=== PATIENT | female | born 1955 | race Caucasian/White ===

== ENCOUNTER → 2021-02-23 | Outpatient (CLI) | payer MEDICARE, BC ==
[~2021-02-23] MED LIST: Z NUVIGIL; Z.0.DIOVAN40 MG; Z.0.PRILOSEC20 MG; citalopram; crestor; vicodin
== END ==
LOC: RAD 13:47
PROVIDERS: ATTEND Family Medicine
DX: R05 Cough (principal)
CPT/HCPCS: 71046

== ENCOUNTER → 2024-06-10 | Outpatient (REF) | payer MEDICARE, BC | LOC: MRI 09:46 | PROVIDERS: ATTEND Internal Medicine Rheumatology | DX: M25.561 Pain in right knee (principal); M23.91 Unspecified internal derangement of right knee ==

== ENCOUNTER 2025-04-12 11:36 | Inpatient (IN) | payer MEDICARE, BC ==
[~2025-04-12] VITALS: Ht 167.6 cm; Wt 59.0 kg
[2025-04-12] MEDS: SODIUM CHLORIDE 0.9% 1000ML 1,000 ML IV STA ×2 (12:13→12:38)
[2025-04-12 12:49] LABS: BASOPHILS % 0.4 % (0.0-1.0); EOSINOPHILS % 0.8 % (0.0-6.0); LYMPHOCYTES % 29.0 % (18.0-39.1); MONOCYTES % 8.3 % (4.4-11.3); NEUTROPHILS % 61.3 % (38.7-80.0); RED CELL DISTRIBUTION WIDTH 13.2 % (11.7-14.4)
[2025-04-12 12:56] VITALS: TEMP 98.6
[2025-04-12] MEDS ORDERED: GABAPENTIN300 MG PO (13:07)
[2025-04-12] MEDS ORDERED: ASPIRIN81 MG PO (13:07)
[2025-04-12] MEDS ORDERED: RANOLAZINE ER500 MG (13:07)
[2025-04-12] MEDS ORDERED: ATORVASTATIN CA40 MG PO (13:08)
[2025-04-12] MEDS ORDERED: AMLODIPINE BESYL5 MG PO (13:08)
[2025-04-12 13:09] LABS: INR 0.95
[2025-04-12] MEDS ORDERED: TRAZODONE HCL300 MG PO (13:09)
[2025-04-12] MEDS ORDERED: VENLAFAXINE HCL75 M1 PO (13:09)
[2025-04-12] MEDS ORDERED: BUSPIRONE HCL10 MG PO (13:09)
[2025-04-12] MEDS ORDERED: BENICAR20 MG PO (13:10)
[2025-04-12 13:15] LABS: EST GLOMERULAR FILTRATION RATE 50.0 ML/MIN (>=60)
[2025-04-12 15:00] VITALS: PULSE 81; RESP 18
[2025-04-12 15:06] LABS: LEUKOCYTE ESTERASE ,URINE NEGATIVE (NEGATIVE); PROTEIN,URINE DIPSTICK NEGATIVE (NEGATIVE); URINE UROBILINOGEN 0.2 mg/dL (0.2 - 1)
[2025-04-12 15:07] LABS: EPITHELIAL CELLS,URINE FEW /LPF; WBC,URINE (MAN) 0-5 /HPF (0-5)
[2025-04-12] MEDS: SODIUM CHLORIDE 0.9% 1000ML 1,000 ML IV SCH (15:44)
[2025-04-12] MEDS ORDERED: Morphine 2mg Syringe 2 MG/ML SYR IV PRN (16:30)
[2025-04-12] MEDS ORDERED: ONDANSETRON HCL INJ 2MG/ML 2ML 2 MG/ML VIAL IV PRN (16:30)
[2025-04-12 20:00] VITALS: BP 147/99; PULSE 66; RESP 18; TEMP 98; O2SAT 98
[2025-04-12 20:59] VITALS: BP 147/99; PULSE 66; RESP 17; TEMP 98; O2SAT 98
[2025-04-12] MEDS: TRAZODONE HCL 50 MG TAB PO SCH (23:31)
[2025-04-12] MEDS: ATORVASTATIN 40 MG TAB PO SCH (23:31)
[2025-04-13 00:04] VITALS: BP 147/99; PULSE 66; RESP 18; TEMP 98; O2SAT 98
[2025-04-13 00:40] VITALS: BP 137/75; PULSE 55; RESP 18; TEMP 98; O2SAT 97
[2025-04-13 04:40] VITALS: BP 138/71; PULSE 60; RESP 16; TEMP 97.5; O2SAT 97
[2025-04-13 05:12] LABS: BASOPHILS % 0.8 % (0.0-1.0); EOSINOPHILS % 2.0 % (0.0-6.0); LYMPHOCYTES % 47.7 % (18.0-39.1); MONOCYTES % 8.3 % (4.4-11.3); NEUTROPHILS % 41.0 % (38.7-80.0); RED CELL DISTRIBUTION WIDTH 13.4 % (11.7-14.4)
[2025-04-13 05:43] LABS: CHOL/HDL RATIO 3.5 (3.0-3.6); EST GLOMERULAR FILTRATION RATE 95.0 ML/MIN (>=60); LDL CHOLESTEROL 69.0 MG/DL (60-130)
[2025-04-13 08:01] VITALS: BP 131/64; PULSE 62; RESP 19; TEMP 97.1; O2SAT 100
[2025-04-13] MEDS: ASPIRIN 81 MG ENTERIC COATED PO SCH (09:43)
[2025-04-13 10:29] VITALS: BP 131/64; PULSE 62; RESP 19; TEMP 97.1; O2SAT 100
[2025-04-13 11:36] VITALS: BP 117/75; PULSE 56; RESP 19; TEMP 98.2; O2SAT 100
[2025-04-13] MEDS: POTASSIUM CHLORIDE 20 MEQ TAB CR PO STA (12:55)
== END 2025-04-13 15:05 | disposition home or self-care (01) | DRG 641 ==
LOC: ER 12:02 → ERHOLD 16:18 → MED/SURG 18:00
PROVIDERS: ADMIT Internal Medicine; ATTEND Internal Medicine
DX: E86.0 Dehydration (principal); N17.9 Acute kidney failure, unspecified; I10 Essential (primary) hypertension; E78.5 Hyperlipidemia, unspecified; F41.9 Anxiety disorder, unspecified; F32.A Depression, unspecified; R07.89 Other chest pain; Z79.82 Long term (current) use of aspirin
CPT/HCPCS: 36415; 71045; 80053; 80061; 81001; 82550; 82948; 83735; 83880; 84484; 85025; 85610; 85730; 93005; 99284; J2470; J7030